=== PATIENT | male | born 1995 | race Caucasian/White ===

== ENCOUNTER 2016-11-30 11:39 | Emergency (ER) | payer BC, OTHER ==
[2016-11-30 11:42] VITALS: BP 148/75; PULSE 78; RESP 24; TEMP 97.7; O2SAT 96
[2016-11-30] MEDS ORDERED: MORPHINE SULFATE 4 MG/ML INJ IV PUSH ONE (12:15)
[2016-11-30] MEDS ORDERED: PROPOFOL 200 MG/20 ML AMP IV ONE (12:15)
[2016-11-30] MEDS ORDERED: SODIUM CHLORIDE 0.9% FLUSH 5 ML FLUSH IVF PRN (12:15)
[2016-11-30 12:16] VITALS: BP 162/86; PULSE 73; RESP 20; O2SAT 98
--- NOTE | 2016-11-30 12:49 | RADRPT ---
EXAM DATE/TIME: 11/30/2016 12:38 [facility] COMPARISON: No previous studies available for comparison. INDICATIONS : Right Shoulder Pain and Deformation after Wrestling accident. MEDICAL HISTORY : None. SURGICAL HISTORY : None. ENCOUNTER: Initial ACUITY: 1 day PAIN SCORE: 10/10 LOCATION: Right Shoulder. FINDINGS: Two view examination of the right shoulder demonstrates anterior dislocation of the humeral head from the glenoid. The acromioclavicular joints normally aligned. A fracture is not seen. CONCLUSION: Anterior dislocation of the humeral head. Jose Daniel Hernández MD on November 30, 2016 at 12:47 Board Certified Radiologist. This report was verified electronically.
--- NOTE | 2016-11-30 12:52 | PD ---
HPI Chief Complaint: Injury Time Seen by Provider: 11:57 Travel History International Travel<30 days: No Contact w/Intl Traveler<30days: No History of Present Illness HPI 20-year-old healthy male here with complaint of right shoulder pain. Patient was doing [employer], wrestling with another player when he fell on his right shoulder and felt his shoulder pop. Believes it to be dislocated. Notes pain in the right shoulder. Denies any pain in the collarbone, scapular region. No numbness or tingling. Pain is moderate, throbbing. PFSH Past Medical History Medical History: Denies Significant Hx Tetanus Vaccination: Unknown Influenza Vaccination: No ?: Not Past Surgical History Surgical History: No Previous Surgery Social History Alcohol Use: Yes (OCCSIONALLY) Tobacco Use: No Substance Use: Yes (MARIJUANA OCCASIONALLY ) Allergies-Medications (Allergen,Severity, Reaction): Coded Allergies: No Known Allergies (Unverified , 11/30/16) Reported Meds & Prescriptions Reported Meds & Active Scripts Active No Active Prescriptions or Reported Medications Review of Systems Except as stated in HPI: all other systems reviewed are Neg Physical Exam Narrative GENERAL: Well-appearing male in mild distress SKIN: Warm and dry. HEAD: Normocephalic. EYES: No scleral icterus. No injection or drainage. ENT Mucous membranes pink and moist. NECK: Supple CARDIOVASCULAR: Regular rate and rhythm. RESPIRATORY: No accessory muscle use. MUSCULOSKELETAL: Obvious right glenohumeral dislocation anteriorly. No tenderness to palpation of the clavicle, acromioclavicular joint, scapular distal humerus. Good distal sensation and pulses. NEUROLOGICAL: Awake and alert. normal speech. PSYCHIATRIC: Appropriate mood and affect; insight and judgment normal. Data Data Last Documented VS Vital Signs Date Time Temp Pulse Resp B/P Pulse Ox O2 Delivery O2 Flow Rate FiO2 11/30/16 13:30 100 4.00 11/30/16 13:30 Nasal Cannula 11/30/16 12:16 20 11/30/16 12:16 73 162/86 11/30/16 11:42 97.7 Orders Iv Access Insert/Monitor (11/30/16 12:02) Ecg Monitoring (11/30/16 12:02) Oximetry (11/30/16 12:02) Morphine Inj (Morphine Inj) (11/30/16 12:15) Sodium Chloride 0.9% Flush (Ns Flush) (11/30/16 12:15) Propofol 200 Mg/20 Ml Inj (Diprivan 200 (11/30/16 12:15) Shoulder, Limited(2vws) (11/30/16 ) Shoulder, Limited(2vws) (11/30/16 ) Support Splint (11/30/16 13:34) MDM Medical Decision Making Medical Screen Exam Complete: Yes Emergency Medical Condition: Yes Medical Record Reviewed: Yes Differential Diagnosis 20-year-old male here with complaint of right shoulder pain. Differential includes glenohumeral joint dislocation, fracture, acromioclavicular separation , sprain. Narrative Course Patient placed on monitor. Given 4 mg morphine. X-ray confirms right anterior shoulder dislocation. Procedural sedation and dislocation reduction performed, please see procedure notes. Post reduction x-ray showed successful reduction and patient placed in sling for discharge. Procedures Procedure Narrative Patient consented to a dislocation reduction. Anesthesia and procedural sedation performed by Dr. Trammell, please see her procedure note. Traction countertraction and external rotation was used with successful dislocation reduction. Good distal pulses post procedure. Diagnosis Primary Impression: Dislocation of right shoulder joint Qualified Code: S43.004A - Dislocation of right shoulder joint, initial encounter Referrals: Maximo Murrieta MD call for appointment Orthopedist call for appointment Patient Instructions: Moderate Sedation (ED) Additional Instructions: Ice the affected area 20 minutes at a time 3-4 times daily. Follow-up with orthopedic surgeon and/or sports medicine physician as instructed. Med/Other Pt SpecificInfo: No Change to Meds Scripts No Active Prescriptions or Reported Meds Disposition: 01 DISCHARGE HOME Condition: Stable Ada Adkins MD Nov 30, 2016 12:52
[2016-11-30 13:30] VITALS: O2SAT 100
--- NOTE | 2016-11-30 13:39 | PD ---
Physical Exam Date Seen by Provider: Nov 30, 2016 Time Seen by Provider: 13:10 Narrative Patient has a right shoulder dislocation, procedural sedation done by me and procedure done by Dr. Hernandez. He is a fairly healthy 20-year-old without significant past medical issues. Airway evaluated. Cardiac and pulmonary exam is unremarkable. After the risks and benefits were discussed the following procedure was performed: MODERATE SEDATION: The patient was placed on a hospital monitor and pulse oximetry. An ambu bag and suction was immediately available at bedside. The patient was monitored by the nurse. Oxygen saturation, heart rate and blood pressure were monitored. Procedural sedation was acheived using 200 mg propofol. The patient was observed until awake and alert. Procedural Sedation time in attendance was 15 minutes. Data Data Last Documented VS Vital Signs Date Time Temp Pulse Resp B/P Pulse Ox O2 Delivery O2 Flow Rate FiO2 11/30/16 12:16 98 Room Air 11/30/16 12:16 20 11/30/16 12:16 73 162/86 11/30/16 11:42 97.7 Orders Iv Access Insert/Monitor (11/30/16 12:02) Ecg Monitoring (11/30/16 12:02) Oximetry (11/30/16 12:02) Morphine Inj (Morphine Inj) (11/30/16 12:15) Sodium Chloride 0.9% Flush (Ns Flush) (11/30/16 12:15) Propofol 200 Mg/20 Ml Inj (Diprivan 200 (11/30/16 12:15) Shoulder, Limited(2vws) (11/30/16 ) Shoulder, Limited(2vws) (11/30/16 ) Support Splint (11/30/16 13:34) MDM Medical Record Reviewed: Yes Supervised Visit with AMILCAR: No Diagnosis Primary Impression: Dislocation of right shoulder joint Qualified Code: S43.004A - Dislocation of right shoulder joint, initial encounter Referrals: Maximo Murrieta MD call for appointment Orthopedist call for appointment Additional Instruction: Ice the affected area 20 minutes at a time 3-4 times daily. Follow-up with orthopedic surgeon and/or sports medicine physician as instructed. Disposition: 01 DISCHARGE HOME Condition: Stable Lv Cervantes MD Nov 30, 2016 13:39
--- NOTE | 2016-11-30 14:11 | RADRPT ---
EXAM DATE/TIME: 11/30/2016 13:44 [facility] COMPARISON: SHOULDER RIGHT LTD (2VWS), November 30, 2016, 12:38. INDICATIONS : Post reduction, right shoulder MEDICAL HISTORY : None. SURGICAL HISTORY : None. ENCOUNTER: Subsequent ACUITY: 1 day PAIN SCORE: 5/10 LOCATION: Right shoulder FINDINGS: Two view examination of the right shoulder demonstrates successful reduction of the previously seen a nterior dislocation at the glenohumeral joint. CONCLUSION: Successful reduction. Jose Daniel Hernández MD on November 30, 2016 at 14:08 Board Certified Radiologist. This report was verified electronically.
== END 2016-11-30 14:34 | disposition home or self-care (01) ==
LOC: NEPA 11:39
DX: S43.004A Unspecified dislocation of right shoulder joint, initial encounter (principal); W03.XXXA Other fall on same level due to collision with another person, initial encounter; Y93.59 Activity, other involving other sports and athletics played individually; Y92.39 Other specified sports and athletic area as the place of occurrence of the external cause
CPT/HCPCS: 23650; 73030; 94770; 96374; 99156; 99283; J2270